=== PATIENT | female | born 1975 | race Caucasian/White ===

== ENCOUNTER 2024-07-02 07:14 | Emergency (ER) | payer BC ==
[2024-07-02] MEDS: Ondansetron 4 MG Tab.DIS PO ONE (07:38)
== END 2024-07-02 07:46 | disposition home or self-care (01) ==
LOC: MW.ED 07:14
DX: T40.2X1A Poisoning by other opioids, accidental (unintentional), initial encounter (principal); R11.0 Nausea; Z79.02 Long term (current) use of antithrombotics/antiplatelets; Z79.899 Other long term (current) drug therapy; Z88.1 Allergy status to other antibiotic agents; Z88.2 Allergy status to sulfonamides; Z88.8 Allergy status to other drugs, medicaments and biological substances; Z75.8 Other problems related to medical facilities and other health care
CPT/HCPCS: 99284; A9270-GY

== ENCOUNTER 2024-08-25 13:00 | Emergency (ER) | payer BC ==
[2024-08-25] MEDS: methylPREDNISolone Sodium Succinate 125 MG/2 ML SDV IM ONE (13:45)
[2024-08-25] MEDS: Cyclobenzaprine 10 MG Tab PO ONE (13:45)
== END 2024-08-25 14:07 | disposition home or self-care (01) ==
LOC: MW.ED 13:00
DX: M79.10 Myalgia, unspecified site (principal); I25.2 Old myocardial infarction; E78.00 Pure hypercholesterolemia, unspecified; K21.9 Gastro-esophageal reflux disease without esophagitis; Z86.73 Personal history of transient ischemic attack (TIA), and cerebral infarction without residual deficits; Z88.1 Allergy status to other antibiotic agents; Z88.2 Allergy status to sulfonamides; Z88.6 Allergy status to analgesic agent; Z88.8 Allergy status to other drugs, medicaments and biological substances; Z79.890 Hormone replacement therapy; Z79.899 Other long term (current) drug therapy
CPT/HCPCS: 96372; 99282; A9270; J2919

== ENCOUNTER 2024-11-15 15:03 | Emergency (ER) | payer BC ==
[2024-11-15] MEDS ORDERED: Sodium Chloride 0.9% 20 ML SDV IV PRN (15:06)
[2024-11-15] MEDS ORDERED: Sodium Chloride 0.9% 10 ML Syringe FLUSH PRN (15:06)
[2024-11-15] MEDS ORDERED: Sodium Chloride 0.9% 2.5 ML Syringe FLUSH PRN (15:06)
[2024-11-15 15:30] LABS: BASOPHILS ABSOLUTE AUTO 0.05 K/uL (0.00-0.20); BASOPHILS PERCENT AUTO 0.4 % (0.0-1.0); EOSINOPHILS ABSOLUTE AUTO 0.21 K/uL (0.00-0.45); EOSINOPHILS PERCENT AUTO 1.8 % (0.0-6.0); HEMATOCRIT 40.2 % (37.0-47.0); HEMOGLOBIN 13.9 g/dL (12.0-16.0); IMMATURE GRAN ABSOLUTE AUTO 0.04 K/uL (0.00-0.05); IMMATURE GRAN PERCENT AUTO 0.3 % (0.0-0.4); LYMPHOCYTES ABSOLUTE AUTO 3.18 K/uL (1.00-4.80); LYMPHOCYTES PERCENT AUTO 27.1 % (24.0-44.0); MEAN CORPUSCULAR HEMOGLOBIN 29.3 pg (28.0-32.0); MEAN CORPUSCULAR HGB CONC 34.6 g/dL (32.0-36.0); MEAN CORPUSCULAR VOLUME 84.6 fL (83.0-99.0); MEAN PLATELET VOLUME 9.9 fL (9.4-12.3); MONOCYTES ABSOLUTE AUTO 0.86 K/uL (0.00-0.80); MONOCYTES PERCENT AUTO 7.3 % (0.0-8.0); NEUTROPHILS ABSOLUTE AUTO 7.41 K/uL (1.80-7.70); NEUTROPHILS PERCENT AUTO 63.1 % (41.0-71.0); PLATELET COUNT,PLT 247 K/uL (150-400); RED BLOOD CELL COUNT 4.75 M/uL (4.10-5.30); WHITE BLOOD CELL COUNT,WBC 11.75 K/uL (3.9-11.3)
[2024-11-15] MEDS: Iopamidol 755 MG/ML 500 ML Multipack Bottle IVPUSH STA (15:41)
[2024-11-15 15:46] LABS: INR 0.97 (0.86-1.11)
[2024-11-15 15:47] LABS: HEMOGLOBIN A1C 5.7 %
[2024-11-15] MEDS: Tenecteplase 50 MG Kit IVPUSH PRN (15:47)
[2024-11-15 16:09] LABS: ALANINE AMINOTRANSFERASE,ALT 62 IU/L (14-63); ALBUMIN 3.3 g/dL (3.4-5.0); ALKALINE PHOSPHATASE 97 U/L (46-116); ASPARTATE AMNIOTRANSFERASE,AST 26 IU/L (15-37); BILIRUBIN TOTAL 0.4 mg/dL (0.2-1.0); BLOOD UREA NITROGEN,BUN 13 mg/dL (7.0-18.0); CALCIUM 8.6 mg/dL (8.5-10.1); CARBON DIOXIDE,CO2 25.1 mmol/L (21.0-32.0); CHLORIDE,CL 102 mmol/L (98-107); CHOLESTEROL HDL 53 mg/dL (40-60); CHOLESTEROL LDL CALCULATED 59 mg/dL (60-180); CHOLESTEROL TOTAL 163 mg/dL (50-200); CREATININE 1.2 mg/dL (0.6-1.0); EST CRCL DRUG DOSING (CG) 42.08 mL/min; GLUCOSE RANDOM 113 mg/dL (74-106); POTASSIUM,K 3.8 mmol/L (3.5-5.1); PRO B-TYPE NATRIUR PEPT,BNPPRO 29 pg/mL (0-125); PROTEIN TOTAL,TP 7.2 g/dL (6.4-8.2); SODIUM,NA 137 mmol/L (136-145); TRIGLYCERIDES 254 mg/dL (0-200); VLDL CHOLESTEROL 50 mg/dL (5-55)
[2024-11-15 16:11] LABS: A/G RATIO 0.9 (0.9-1.6); ESTIMATED GFR 57 mL/min (>60); ETHANOL BLOOD MEDICAL < 3.0 mg/dL
[2024-11-15] MEDS: Acetaminophen 500 MG Tab PO ONE (16:17)
== END 2024-11-15 18:11 ==
LOC: MW.ED 15:03
DX: I63.9 Cerebral infarction, unspecified (principal); I10 Essential (primary) hypertension; I25.2 Old myocardial infarction; E78.00 Pure hypercholesterolemia, unspecified; K21.9 Gastro-esophageal reflux disease without esophagitis; Z79.899 Other long term (current) drug therapy; Z79.890 Hormone replacement therapy; Z88.6 Allergy status to analgesic agent; Z88.1 Allergy status to other antibiotic agents; Z88.8 Allergy status to other drugs, medicaments and biological substances; Z88.2 Allergy status to sulfonamides
CPT/HCPCS: 36415; 70450; 70496; 70498; 80053; 80061; 80307; 82947; 83036; 83880; 84484; 84703; 85025; 85610; 85730; 93005; 96372; 99285; A9270; J3101; Q9967; 93010; 99291

== ENCOUNTER 2025-04-30 11:58 | Emergency (ER) | payer BC ==
[2025-04-30 12:17] LABS: BASOPHILS ABSOLUTE AUTO 0.06 K/uL (0.00-0.20); BASOPHILS PERCENT AUTO 0.6 % (0.0-1.0); EOSINOPHILS ABSOLUTE AUTO 0.19 K/uL (0.00-0.45); EOSINOPHILS PERCENT AUTO 1.8 % (0.0-6.0); IMMATURE GRAN ABSOLUTE AUTO 0.05 K/uL (0.00-0.05); IMMATURE GRAN PERCENT AUTO 0.5 % (0.0-0.4); LYMPHOCYTES ABSOLUTE AUTO 3.00 K/uL (1.00-4.80); LYMPHOCYTES PERCENT AUTO 27.9 % (24.0-44.0); MEAN PLATELET VOLUME 10.1 fL (9.4-12.3); MONOCYTES ABSOLUTE AUTO 0.74 K/uL (0.00-0.80); MONOCYTES PERCENT AUTO 6.9 % (0.0-8.0); NEUTROPHILS ABSOLUTE AUTO 6.72 K/uL (1.80-7.70); NEUTROPHILS PERCENT AUTO 62.3 % (41.0-71.0); NRBC ABSOLUTE 0.00 K/uL (0.00-0.02); NRBC PERCENT 0.0 /100WBC (0.0-0.2); PLATELET COUNT,PLT 328 K/uL (150-400); RED BLOOD CELL COUNT 5.23 M/uL (4.10-5.30); WHITE BLOOD CELL COUNT,WBC 10.76 K/uL (3.9-11.3)
[2025-04-30] MEDS: Promethazine 25 MG/ML SDV IM ONE (12:22)
[2025-04-30 12:38] LABS: APPEARANCE,URINE CLEAR; GLUCOSE,URINE NEGATIVE (NEGATIVE); OCCULT BLOOD,URINE NEGATIVE (NEGATIVE)
[2025-04-30 12:41] LABS: EPITHELIAL CELLS,URINE OCCASIONAL (NONE-FEW)
[2025-04-30 12:48] LABS: A/G RATIO 0.8 (0.9-1.6); ALANINE AMINOTRANSFERASE,ALT 53.0 IU/L (14-63); ASPARTATE AMNIOTRANSFERASE,AST 26.0 IU/L (15-37); BILIRUBIN TOTAL 0.4 mg/dL (0.2-1.0); BLOOD UREA NITROGEN,BUN 13.0 mg/dL (7.0-18.0); CARBON DIOXIDE,CO2 26.8 mmol/L (21.0-32.0); CHLORIDE,CL 101.0 mmol/L (98-107); CREATININE 1.1 mg/dL (0.6-1.0); EST CRCL DRUG DOSING (CG) 52.3 mL/min; ESTIMATED GFR 62.0 mL/min (>60); GLUCOSE RANDOM 87.0 mg/dL (74-106); POTASSIUM,K 4.4 mmol/L (3.5-5.1); PROTEIN TOTAL,TP 8.2 g/dL (6.4-8.2); SODIUM,NA 137.0 mmol/L (136-145)
[2025-04-30] MEDS: Ondansetron 4 MG/2 ML SDV IVPUSH ONE (13:08)
== END 2025-04-30 13:36 | disposition home or self-care (01) ==
LOC: MW.ED 11:58
DX: K29.70 Gastritis, unspecified, without bleeding (principal); E78.00 Pure hypercholesterolemia, unspecified; I10 Essential (primary) hypertension; I25.2 Old myocardial infarction; K21.9 Gastro-esophageal reflux disease without esophagitis; E03.9 Hypothyroidism, unspecified; Z88.6 Allergy status to analgesic agent; Z88.1 Allergy status to other antibiotic agents; Z88.2 Allergy status to sulfonamides; Z88.8 Allergy status to other drugs, medicaments and biological substances; Z79.899 Other long term (current) drug therapy; Z79.890 Hormone replacement therapy; Z86.73 Personal history of transient ischemic attack (TIA), and cerebral infarction without residual deficits
CPT/HCPCS: 36415; 71045; 80053; 81001; 81025; 83690; 85025; 96360; 96372; 99284; J2550; J7030; 99283

== ENCOUNTER 2025-06-13 13:19 | Emergency (ER) | payer BC ==
[2025-06-13 13:38] LABS: BASOPHILS ABSOLUTE AUTO 0.06 K/uL (0.00-0.20); BASOPHILS PERCENT AUTO 0.5 % (0.0-1.0); EOSINOPHILS ABSOLUTE AUTO 0.24 K/uL (0.00-0.45); EOSINOPHILS PERCENT AUTO 1.9 % (0.0-6.0); IMMATURE GRAN ABSOLUTE AUTO 0.05 K/uL (0.00-0.05); IMMATURE GRAN PERCENT AUTO 0.4 % (0.0-0.4); LYMPHOCYTES ABSOLUTE AUTO 2.91 K/uL (1.00-4.80); LYMPHOCYTES PERCENT AUTO 22.9 % (24.0-44.0); MEAN PLATELET VOLUME 9.6 fL (9.4-12.3); MONOCYTES ABSOLUTE AUTO 0.69 K/uL (0.00-0.80); MONOCYTES PERCENT AUTO 5.4 % (0.0-8.0); NEUTROPHILS ABSOLUTE AUTO 8.74 K/uL (1.80-7.70); NEUTROPHILS PERCENT AUTO 68.9 % (41.0-71.0); NRBC ABSOLUTE 0.00 K/uL (0.00-0.02); NRBC PERCENT 0.0 /100WBC (0.0-0.2); PLATELET COUNT,PLT 285 K/uL (150-400); RED BLOOD CELL COUNT 5.43 M/uL (4.10-5.30); WHITE BLOOD CELL COUNT,WBC 12.69 K/uL (3.9-11.3)
[2025-06-13] MEDS: diphenhydrAMINE 50 MG/ML SDV IVPUSH ONE (13:42)
[2025-06-13] MEDS: Lactated Ringers 1,000 ML IV ONE (13:44)
[2025-06-13 13:50] LABS: BLOOD UREA NITROGEN,BUN 15 mg/dL (7.0-18.0); CARBON DIOXIDE,CO2 25.1 mmol/L (21.0-32.0); CHLORIDE,CL 102 mmol/L (98-107); CREATININE 1.0 mg/dL (0.6-1.0); GLUCOSE RANDOM 112 mg/dL (74-106); POTASSIUM,K 3.9 mmol/L (3.5-5.1); SODIUM,NA 136 mmol/L (136-145)
[2025-06-13 13:54] LABS: ESTIMATED GFR 70 mL/min (>60)
[2025-06-13 14:10] LABS: LACTIC ACID 1.2 mmol/L (0.4-2.0)
== END 2025-06-13 14:53 | disposition home or self-care (01) ==
LOC: MW.ED 13:19
DX: R51.9 Headache, unspecified (principal); I10 Essential (primary) hypertension; I25.2 Old myocardial infarction; E78.00 Pure hypercholesterolemia, unspecified; K21.9 Gastro-esophageal reflux disease without esophagitis; E03.9 Hypothyroidism, unspecified; Z88.6 Allergy status to analgesic agent; Z88.2 Allergy status to sulfonamides; Z88.1 Allergy status to other antibiotic agents; Z88.8 Allergy status to other drugs, medicaments and biological substances; Z79.890 Hormone replacement therapy; Z79.899 Other long term (current) drug therapy
CPT/HCPCS: 36415; 80048; 83605; 85025; 96374; 99284; A9270; J2765; J7120; 99283

== ENCOUNTER 2025-08-06 12:52 | Emergency (ER) | payer BC ==
[2025-08-06 13:23] LABS: BASOPHILS ABSOLUTE AUTO 0.05 K/uL (0.00-0.20); BASOPHILS PERCENT AUTO 0.4 % (0.0-1.0); EOSINOPHILS ABSOLUTE AUTO 0.28 K/uL (0.00-0.45); EOSINOPHILS PERCENT AUTO 2.1 % (0.0-6.0); IMMATURE GRAN ABSOLUTE AUTO 0.04 K/uL (0.00-0.05); IMMATURE GRAN PERCENT AUTO 0.3 % (0.0-0.4); LYMPHOCYTES ABSOLUTE AUTO 3.18 K/uL (1.00-4.80); LYMPHOCYTES PERCENT AUTO 24.1 % (24.0-44.0); MEAN PLATELET VOLUME 10.0 fL (9.4-12.3); MONOCYTES ABSOLUTE AUTO 1.06 K/uL (0.00-0.80); MONOCYTES PERCENT AUTO 8.0 % (0.0-8.0); NEUTROPHILS ABSOLUTE AUTO 8.59 K/uL (1.80-7.70); NEUTROPHILS PERCENT AUTO 65.1 % (41.0-71.0); NRBC ABSOLUTE 0.00 K/uL (0.00-0.02); NRBC PERCENT 0.0 /100WBC (0.0-0.2); PLATELET COUNT,PLT 289 K/uL (150-400); RED BLOOD CELL COUNT 5.34 M/uL (4.10-5.30); WHITE BLOOD CELL COUNT,WBC 13.20 K/uL (3.9-11.3)
[2025-08-06 14:04] LABS: A/G RATIO 0.8 (0.9-1.6); ALANINE AMINOTRANSFERASE,ALT 46.0 IU/L (14-63); ASPARTATE AMNIOTRANSFERASE,AST 22.0 IU/L (15-37); BILIRUBIN TOTAL 0.3 mg/dL (0.2-1.0); BLOOD UREA NITROGEN,BUN 21.0 mg/dL (7.0-18.0); CARBON DIOXIDE,CO2 26.5 mmol/L (21.0-32.0); CHLORIDE,CL 104.0 mmol/L (98-107); CREATININE 1.0 mg/dL (0.6-1.0); EST CRCL DRUG DOSING (CG) 57.53 mL/min; GLUCOSE RANDOM 98.0 mg/dL (74-106); POTASSIUM,K 4.0 mmol/L (3.5-5.1); PROTEIN TOTAL,TP 7.8 g/dL (6.4-8.2); SODIUM,NA 137.0 mmol/L (136-145)
[2025-08-06 14:05] LABS: ESTIMATED GFR 70.0 mL/min (>60)
[2025-08-06] MEDS: Acetaminophen/HYDROcodone 325-10 MG Tab PO STA (14:10)
[2025-08-06] MEDS: Aluminum Hydroxide/Magnesium Hydroxide/Simethicone Susp 30 ML Cup PO ONE (14:40)
== END 2025-08-06 15:07 | disposition home or self-care (01) ==
LOC: MW.ED 12:52
DX: R07.9 Chest pain, unspecified (principal); I10 Essential (primary) hypertension; K21.9 Gastro-esophageal reflux disease without esophagitis; E03.9 Hypothyroidism, unspecified; Z88.2 Allergy status to sulfonamides; Z88.8 Allergy status to other drugs, medicaments and biological substances; Z79.890 Hormone replacement therapy; Z79.899 Other long term (current) drug therapy
CPT/HCPCS: 36415; 71045; 80053; 83690; 84484; 85025; 85379; 93005; 99285; A9270; J3490; 93010; 99284